=== PATIENT | male | born 1990 | race Native Hawaiian/Other Pacific Islander ===

== ENCOUNTER 2021-12-13 21:04 | Emergency (ER) | payer BC ==
[~2021-12-13] VITALS: Ht 182.9 cm; Wt 92.1 kg
[2021-12-13 22:36] VITALS: BP 117/76; TEMP 98.7
== END 2021-12-13 22:36 | disposition home or self-care (01) ==
LOC: ED 21:04
PROC: 0HQ0XZZ Repair Scalp Skin, External Approach (ICD-10-PCS; principal; 2021-12-13)
DX: S01.01XA Laceration without foreign body of scalp, initial encounter (principal); W24.0XXA Contact with lifting devices, not elsewhere classified, initial encounter; Y92.89 Other specified places as the place of occurrence of the external cause
CPT/HCPCS: 90472; 90715; 99283; J2001